=== PATIENT | female | born 1975 | race American Indian/Alaskan Native ===

== ENCOUNTER 2017-12-21 09:27 | Outpatient (CLI) | payer BC, OTHER ==
--- NOTE | 2017-12-21 11:31 | Mammography Report ---
BILATERAL DIGITAL DIAGNOSTIC MAMMOGRAM with CAD and BILATERAL BREAST ULTRASOUND: 12/21/17 CLINICAL: Bilateral breast lumps. COMPARISON:03/08/16 bilateral mammogram and limited right breast ultrasound FINDINGS: The breasts are heterogeneously dense, which may obscure small masses and limit the sensitivity of mammography.No mass, architectural distortion or suspicious calcifications . No mammographic finding at bilateral upper outer palpable markers. Ultrasound of the right breast (including all four quadrants and the retroareolar area) was performed. An irregular solid hypoechoic densely shadowing mass at 11:30 o'clock 3 cm from the nipple measures approximately 1.1 x 1.0 x 0.9 cm. The mass is nonpalpable. A benign cyst at 10 o'clock 7 cm from the nipple correlates with what the patient feels and it measures 2.3 x 1.1 x 2.2 cm. A second benign cyst at 10 o'clock 7 cm from the nipple measures 1.4 x 1.5 x 0.4 cm. Ultrasound of the left breast (including all four quadrants and the retroareolar area) was performed and demonstrated several benign cysts and no solid mass. The largest cyst is at 1 o'clock 6 cm from the nipple measuring 1.2 x 0.7 x 1.2 cm. 2 adjacent benign cysts measure less than 1 cm. This cluster of cysts correlates with what the patient feels has a lump. A benign cyst at 2 o'clock 5 cm from the nipple measures 8 x 5 x 7 mm and a cyst at 10 o'clock 6 cm from the nipple measures 6 x 3 x 5 mm. IMPRESSION: 1. A suspicious solid 1.1 cm right breast mass at 11:30 o'clock. 2. Bilateral benign cysts. BI-RADS CATEGORY: 4--Suspicious RECOMMENDATION: Ultrasound guided needle core biopsy of the right breast mass. I discussed the findings and the recommendation for needle core biopsy of the right breast with the patient at the time of the examination. ACR BI-RADS MAMMOGRAPHIC CODES: 0 = Needs additional imaging evaluation; 1 = Negative; 2 = Benign; 3 = Probably benign; 4 = Suspicious; 5 = Malignant; 6 = Known biopsy-proven malignancy COMMENT: 1. Dense breast tissue, i.e., adenosis, fibrocystic changes, etc., may obscure an underlying neoplasm. 2. Approximately 10% of cancers are not detected with mammography. 3. A negative mammography report should not delay biopsy if a clinically suspicious mass is present. COMMENT: Patient follow-up letters are generated by our [employer] application.
== END 2017-12-21 09:28 | disposition home or self-care (01) ==
LOC: SPVWC 09:27
PROVIDERS: ATTEND Obstetrics & Gynecology
DX: N60.01 Solitary cyst of right breast (principal); N60.02 Solitary cyst of left breast
CPT/HCPCS: 77066

== ENCOUNTER → 2017-12-27 | Outpatient (CLI) | payer OTHER ==
--- NOTE | 2017-12-27 11:39 | Mammography Report ---
RIGHT DIGITAL DIAGNOSTIC MAMMOGRAM: 12/27/17 10:14:00 CLINICAL: For clip placement immediately status post ultrasound biopsy. COMPARISON:12/21/17 FINDINGS: A biopsy clip is now identified at 11:30 o'clock and correlates with the location of the previously described mass which was only identifiable by ultrasound. IMPRESSION: Concordant clip placement status post ultrasound biopsy. BI-RADS CATEGORY: 4--Suspicious Pathology pending.
--- NOTE | 2017-12-27 13:16 | Ultrasound Report ---
ULTRASOUND GUIDED NEEDLE CORE BIOPSY RIGHT BREAST WITH CLIP PLACEMENT: 12/27/17 CLINICAL: Mass at 12 o'clock 3 cm from the nipple. COMPARISON :12/21/17 FINDINGS: The procedure was explained to the patient and informed consent was obtained. Ultrasound demonstrated the previously described densely shadowing hypoechoic mass at approximately 11:30 to 12 o'clock 3 cm from the nipple. I marked the breast with a felt tip marker and a time out was called. The skin was prepped with Betadine and anesthetized with 1% lidocaine. Needle core biopsy was performed through a tiny dermatotomy using ultrasound guidance, 2% lidocaine with epinephrine for deep anesthesia and a 14-gauge Achieve biopsy device. At least five cores were obtained and placed in formalin. Tissue samples were sparse in the lesion showed significant collapse upon biopsy. A clip was deployed within the mass.A final image demonstrated a more echogenic oval relatively smooth mass with minimal shadowing measuring 1.0 x 0.6 cm. The patient tolerated the procedure well and there were no apparent complications. Hemostasis was achieved with minimal pressure and a sterile dressing was applied. A two view mammogram demonstrated concordant clip deployment. She left the department in good condition and was given instructions for wound care and followup. IMPRESSION: Uncomplicated ultrasound guided needle core biopsy with clip placement right breast. Significant collapse of the lesion and much less shadowing by the mass upon biopsy. This change suggests a more likely benign pathology such as abscess or benign fat necrosis.
== END | disposition home or self-care (01) ==
LOC: SPVWC 10:14
PROVIDERS: ATTEND Obstetrics & Gynecology
DX: N61.0 Mastitis without abscess (principal)
CPT/HCPCS: 19083; 77065; 88305; A4648

== ENCOUNTER 2018-09-01 14:24 | Emergency (ER) | payer SELFPAY | END 2018-09-01 14:45 | disposition left against medical advice (07) | LOC: ED 14:24 | DX: M54.5 Low back pain (principal); Z53.21 Procedure and treatment not carried out due to patient leaving prior to being seen by health care provider ==